=== PATIENT | male | born 1975 | race Native Hawaiian/Other Pacific Islander ===

== ENCOUNTER 2016-07-09 20:46 | Emergency (ER) | payer OTHER ==
[2016-07-09 22:15] VITALS: BP 114/68
[2016-07-10] MEDS ORDERED: TYLENOL PO ONE (05:23)
[2016-07-10] MEDS ORDERED: FLEXERIL PO ONE (05:24)
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
--- NOTE | 2016-07-10 08:12 | XRay Report ---
LEFT HAND: The bony architecture is intact. Bony alignment is normal. No soft tissue abnormalities are seen. The joint spaces appear preserved. IMPRESSION: Normal left hand.
== END 2016-07-10 07:00 | disposition home or self-care (01) ==
LOC: ED 20:46
DX: S13.4XXA Sprain of ligaments of cervical spine, initial encounter (principal); M79.642 Pain in left hand; V89.2XXA Person injured in unspecified motor-vehicle accident, traffic, initial encounter; Y92.488 Other paved roadways as the place of occurrence of the external cause; Y93.89 Activity, other specified; Y99.8 Other external cause status
CPT/HCPCS: 70450; 72125